=== PATIENT | female | born 1980 | race Caucasian/White ===

== ENCOUNTER → 2017-01-11 | Outpatient (CLI) | payer OTHER ==
--- NOTE | 2017-01-11 16:23 | DX ---
Cervical spine, 2 views History: M99.01, segmental and somatic dysfunction of the cervical region. Findings: Normal cervical alignment. No significant disk space narrowing or osteophytes. No congenita l vertebral body abnormalities. No spondylolisthesis. Spinous processes appear intact. Impression: Normal cervical spine 2 views.
== END ==
LOC: BRMIMAGING 08:41
DX: Z13.828 Encounter for screening for other musculoskeletal disorder (principal)
CPT/HCPCS: 72040-PO